=== PATIENT | male | born 1945 | race Caucasian/White ===

== ENCOUNTER 2018-05-05 07:53 | Inpatient (IN) | payer MEDICARE ==
[2018-05-05] MEDS ORDERED: Celecoxib 200 MG Cap PO ONE (08:00)
[2018-05-05] MEDS ORDERED: Gabapentin 300 MG Cap PO ONE (08:00)
[2018-05-05] MEDS ORDERED: Acetaminophen 500 MG Tab PO ONE (08:00)
[2018-05-05] MEDS ORDERED: Scopolamine 1.5 MG Transdermal Patch TOP SCH (08:00)
[2018-05-05] MEDS ORDERED: fentaNYL 250 MCG/5 ML SDV ONE ×2 (08:17→12:28)
[2018-05-05] MEDS ORDERED: Ondansetron 4 MG/2 ML SDV ONE (08:18)
[2018-05-05] MEDS ORDERED: Succinylcholine 200 MG/10 ML MDV ONE (08:18)
[2018-05-05] MEDS ORDERED: Dexamethasone 4 MG/ML SDV ONE (08:18)
[2018-05-05] MEDS ORDERED: Rocuronium 50 MG/5 ML Vial ONE (08:18)
[2018-05-05] MEDS ORDERED: Glycopyrrolate 0.2 MG/ML 5 ML MDV ONE (08:18)
[2018-05-05] MEDS ORDERED: Propofol 200 MG/20 ML SDV ONE (08:18)
[2018-05-05] MEDS ORDERED: Neostigmine Methylsulfate 1 MG/ML 5 ML Syringe ONE (08:18)
[2018-05-05] MEDS ORDERED: Dextrose 5%-Lactated Ringers 1,000 ML IV SCH (09:00)
[2018-05-05] MEDS ORDERED: Albuterol/Ipratropium 3.0-0.5 MG/3 ML Neb Soln NEB ONE (09:30)
[2018-05-05] MEDS ORDERED: Ropivacaine 56 ML, Dexamethasone 8 MG, EPINEPHrine 0.4 MG, Sodium Chloride 0.9% 21.6 ML NERVRT SCH ×4 (10:00)
[2018-05-05] MEDS ORDERED: Lidocaine 2% 100 MG/5 ML Syringe IVPUSH ONE (10:00)
[2018-05-05] MEDS ORDERED: cefOXitin 2 GM in Sodium Chloride 0.9% 50 ML IV ONE (10:00)
[2018-05-05] MEDS ORDERED: Ketamine 500 MG/5 ML MDV IV SCH (10:00)
[2018-05-05] MEDS ORDERED: Lactated Ringers 1,000 ML ONE (10:16)
[2018-05-05] MEDS ORDERED: cefOXitin 2 GM Vial ONE (12:41)
[2018-05-05] MEDS ORDERED: hydrOXYzine HCl 100 MG/2 ML SDV IM ONE (13:59)
[2018-05-05] MEDS: Lidocaine 0.4%/D5W 2 GM/500 ML BAG IV SCH (14:54)
[2018-05-05] MEDS ORDERED: Albuterol/Ipratropium 3.0-0.5 MG/3 ML Neb Soln INH PRN (15:12)
[2018-05-05] MEDS: Pantoprazole 40 MG Vial IVPUSH SCH (15:58)
[2018-05-05] MEDS ORDERED: Labetalol 20 MG/4 ML Syringe IVPUSH PRN (16:00)
[2018-05-05] MEDS ORDERED: hydrOXYzine HCl 100 MG/2 ML SDV IM PRN (16:00)
[2018-05-05] MEDS ORDERED: Ondansetron 4 MG/2 ML SDV IVPUSH PRN (16:00)
[2018-05-05] MEDS ORDERED: diphenhydrAMINE 50 MG/ML SDV IVPUSH PRN (16:00)
[2018-05-05] MEDS ORDERED: Metoclopramide 10 MG/2 ML SDV IVPUSH PRN (16:00)
[2018-05-05] MEDS: Acetaminophen Soln 650 MG/20.3 ML UD Cup PO SCH ×2 (16:03→22:46)
[2018-05-05] MEDS: cefOXitin 2 GM in Sodium Chloride 0.9% 50 ML IV SCH ×2 (16:39→23:17)
[2018-05-05] MEDS: MVI, Adult with Vitamin K 10 ML, Thiamine 200 MG, Chromium/Copper/Mang/Selen/Zn 1 ML in... IV SCH ×4 (16:44)
[2018-05-05] MEDS: Formoterol/Mometasone 200-5 MCG 8.8 GM Inhaler IH SCH (22:41)
[2018-05-05] MEDS: Heparin Sodium 5,000 Units/ML Vial SUBCUT SCH (22:46)
[2018-05-05] MEDS: Montelukast 5 MG Tab.Chew PO SCH (22:46)
[2018-05-05] MEDS: Gabapentin 250 MG/5 ML Solution ML 470 ML Bottle PO SCH (22:46)
[2018-05-05] MEDS: Albuterol/Ipratropium 3.0-0.5 MG/3 ML Neb Soln INH SCH (22:46)
[2018-05-05] MEDS: Dextrose 5%-Lactated Ringers 1,000 ML IV SCH (23:18)
[2018-05-06] MEDS ORDERED: Iohexol 647 MG/ML 50 ML SDV PO STA (03:00)
[2018-05-06] MEDS: Heparin Sodium 5,000 Units/ML Vial SUBCUT SCH ×3 (04:30→21:35)
[2018-05-06] MEDS: Albuterol/Ipratropium 3.0-0.5 MG/3 ML Neb Soln INH SCH ×5 (04:49→21:36)
[2018-05-06] MEDS: cefOXitin 2 GM in Sodium Chloride 0.9% 50 ML IV SCH ×2 (04:50→10:50)
[2018-05-06] MEDS: Acetaminophen Soln 650 MG/20.3 ML UD Cup PO SCH ×4 (04:50→21:37)
[2018-05-06] MEDS: Lidocaine 0.4%/D5W 2 GM/500 ML BAG IV SCH (05:05)
[2018-05-06] MEDS: Dextrose 5%-Lactated Ringers 1,000 ML IV SCH ×2 (06:07→21:04)
[2018-05-06] MEDS: Formoterol/Mometasone 200-5 MCG 8.8 GM Inhaler IH SCH (07:29)
[2018-05-06] MEDS: SCOPOLAMINE PATCH CHECK TOP SCH (08:11)
[2018-05-06] MEDS: Gabapentin 250 MG/5 ML Solution ML 470 ML Bottle PO SCH ×3 (08:15→21:37)
[2018-05-06] MEDS: Celecoxib 200 MG Cap PO SCH (08:15)
--- NOTE | 2018-05-06 09:05 | CR ---
Limited upper GI The patient is status post Mark-en-Y gastric bypass. There are left upper quadrant drains in place. T here is no extravasation of contrast. The gastric pouch empties readily into a nondilated Mark limb. No complications are evident. Impression: 1. Status post Mark-en-Y gastric bypass without evidence for complication.
[2018-05-06] MEDS: ADVAIR 250/50 INHALER (PTOM) INH SCH ×2 (10:15→21:36)
[2018-05-06] MEDS: amLODIPine 5 MG Tab PO SCH (10:49)
[2018-05-06] MEDS: Losartan 50 MG Tab PO SCH (10:49)
[2018-05-06] MEDS: Aspirin 81 MG Tab.EC PO SCH (10:49)
[2018-05-06] MEDS: Tamsulosin 0.4 MG Cap.ER PO SCH ×2 (10:49→21:37)
[2018-05-06] MEDS: MVI, Adult with Vitamin K 10 ML, Thiamine 200 MG, Chromium/Copper/Mang/Selen/Zn 1 ML in... IV SCH ×4 (15:18)
[2018-05-06] MEDS: Pantoprazole 40 MG Vial IVPUSH SCH (15:19)
[2018-05-06] MEDS: Montelukast 5 MG Tab.Chew PO SCH (21:37)
[2018-05-07] MEDS: Heparin Sodium 5,000 Units/ML Vial SUBCUT SCH (03:23)
[2018-05-07] MEDS: Acetaminophen Soln 650 MG/20.3 ML UD Cup PO SCH ×2 (03:23→09:10)
[2018-05-07] MEDS: Dextrose 5%-Lactated Ringers 1,000 ML IV SCH (05:56)
[2018-05-07] MEDS: Celecoxib 200 MG Cap PO SCH (07:30)
[2018-05-07] MEDS: Albuterol/Ipratropium 3.0-0.5 MG/3 ML Neb Soln INH SCH (07:37)
[2018-05-07] MEDS: ADVAIR 250/50 INHALER (PTOM) INH SCH (07:40)
[2018-05-07] MEDS ORDERED: Ondansetron 4 MG Tab.DIS PO PRN (08:01)
[2018-05-07] MEDS ORDERED: Cyanocobalamin (Vitamin B12) 1,000 MCG/ML SDV IM ONE (09:00)
[2018-05-07] MEDS: amLODIPine 5 MG Tab PO SCH (09:08)
[2018-05-07] MEDS: Losartan 50 MG Tab PO SCH (09:09)
[2018-05-07] MEDS: SCOPOLAMINE PATCH CHECK TOP SCH (09:09)
[2018-05-07] MEDS: Aspirin 81 MG Tab.EC PO SCH (09:09)
[2018-05-07] MEDS: Gabapentin 250 MG/5 ML Solution ML 470 ML Bottle PO SCH (09:26)
--- NOTE | 2018-05-07 12:25 | DISCH ---
ADMISSION DIAGNOSES: 1. Morbid obesity, BMI 42.7. 2. Asthma. 3. Esophageal reflux. 4. Benign essential hypertension. 5. Obstructive sleep apnea with use of CPAP. 6. Allergic rhinitis. DISCHARGE DIAGNOSES: Laparoscopic Mark-en-Y gastric bypass surgery, liver biopsy, repair of diaphragmatic hernia, excision of mediastinal lipoma, and excision of lesion on surface of sigmoid colon for morbid obesity, hepatomegaly, diaphragmatic hernia with mediastinal lipoma and nodule infarcted small tissue mass on the surface of the sigmoid colon. Date of surgery, 05/05/2018. Surgeon, Tip Hooper MD. HISTORY: Raymond Dos Santos is a 72-year-old male with a longstanding history of morbid obesity and increasing comorbidities. After preoperative evaluation and discussion of possible risks and possible complications, he wished to proceed with surgical procedure. HOSPITAL COURSE: Raymond had his surgery on 05/05/2018. He had no operative complications. On postoperative day #1, he was started on step-2 . He was able to be discharged to home on postoperative day #2, 05/07/2018. PHYSICAL EXAMINATION: GENERAL: Raymond Dos Santos is a 72-year-old male. VITAL SIGNS: Height is 5 feet 4 inches. Weight is 240 pounds. TPR 95.8, 49, 16, and blood pressure 135/64. HEENT: Negative. NECK: Supple. HEART: Regular rate and rhythm. LUNGS: Clear. ABDOMEN: Incisions look good. 4x4 over RON drain. Abdominal binder has been on. EXTREMITIES: Without peripheral edema. DISPOSITION: Discharged home. CONDITION: Stable and improving. FOLLOWUP APPOINTMENT: Faye Mercedes PA-C, on 05/14/2018 at 10 a.m. DISCHARGE MEDICATIONS: New prescriptions; 1. Tylenol 650 mg oral, liquid or chewable, q.6 hours p.r.n. pain. 2. Zofran 4 mg oral q.4 hours p.r.n. nausea, #30. 3. Celebrex 200 mg 1 p.o. daily, #14, to start tomorrow. He is to resume his home medications of; 1. Albuterol inhaler 4 times daily p.r.n. shortness of breath. 2. Ecotrin 81 mg oral daily. 3. Advair 250/50 one puff inhalation twice daily. 4. Imodium 6 mg oral daily p.r.n. 5. Cozaar 100 mg oral daily. 6. Lovastatin 20 mg oral at bedtime. 7. Singulair 10 mg oral at bedtime. 8. Protonix 40 mg oral daily. 9. Sildenafil citrate 100 mg oral daily p.r.n. erectile dysfunction. 10.Zinc 15 mg oral daily. 11.Amlodipine 5 mg oral daily. Discontinue taking glucosamine until next appointment. DISCHARGE DIET: Drink 8 to 10 glasses of water a day. Step-2 gastric bypass diet with no cereal until 05/19/2018. ACTIVITY: No lifting greater than 10 pounds for 2 weeks. Walk 6 times daily, distance and time as tolerated. Driving, do not drive for one week. Shower/bathing, may shower. DISCHARGE INSTRUCTIONS: Notify provider if any fever, increased pain, swelling, redness, nausea, or vomiting. Wound keep site clean and dry. Wear abdominal binder for 2 weeks and then as tolerated. Special instruction, use incentive spirometer 10 times every hour while awake.
--- NOTE | 2018-05-08 07:59 | PN ---
DATE OF SERVICE: 05/06/2018 The patient has been afebrile with stable vital signs, after gastric bypass yesterday, along with repair of a large hiatal hernia. Clinically, he is doing well. Urine output has been little bit sluggish, and we will give him some Flomax, although he is voiding a substantial amount at a time. We will check a postvoid residual. Otherwise, upper GI x-ray looks okay. Will go to a step-2 diet today and restart his pertinent oral medications. Otherwise, maximize activity and work with pulmonary toilet. Tip Hooper MD /[id number]
--- NOTE | 2018-05-09 08:09 | OR ---
DATE OF PROCEDURE: 05/05/2018 PREOPERATIVE DIAGNOSIS: Morbid obesity. POSTOPERATIVE DIAGNOSES: 1. Morbid obesity. 2. Marked hepatomegaly. 3. Paraesophageal diaphragmatic hernia associated with mediastinal lipoma. 4. 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 OPERATIVE PROCEDURES: Diagnostic laparoscopy with 1. Laparoscopic Mark-en-Y gastric bypass with long-limb gastroenterostomy (11425). 2. Farrukh-Cut needle liver biopsy (16873). 3. Repair of paraesophageal diaphragmatic hernia (02685). 4. Excision of mediastinal lipoma (72126). 5. Excision of nodular infarcted soft tissue mass on the surface of sigmoid colon (36754). ANESTHESIA: General. MACHINE BOBBIN WINDER: Faye Mercedes PA-C. INDICATIONS FOR PROCEDURE: This 72-year-old male is presenting with longstanding morbid obesity and increasingly significant comorbidities. After preoperative evaluation and discussion, he wished to proceed with a gastric bypass procedure. Potential risks of the procedure including bleeding, infection, leaks from various GI tract closures, problems with bowel obstruction over time, as well as the possibility of cardiopulmonary, septic, or hemorrhagic complications leading to were all discussed, and the patient wishes to proceed. DETAILS OF PROCEDURE: The patient was taken to the operating room and placed in a supine position. After general endotracheal anesthesia was induced, he was converted to a lithotomy position. An orogastric tube was placed, and the abdomen was prepped and draped. 15 cm inferior and 5 cm left of the xiphoid process, a transverse incision was made, and the peritoneal cavity was entered under direct vision with an Optiview trocar and inflated to 15 mmHg pressure with CO2. Laparoscope was reinserted. No underlying trocar insertion site injuries were seen. Bilateral subcostal transversus abdominis plane bocks were then placed with direct visualization of the needle in the correct plane and injection of the standard solution bilateral. Five additional trocars were placed across the upper and mid abdomen, and general exploration was undertaken. Two findings were noted. One was that of an infarcted nodular lesion over the peritoneal surface of the sigmoid colon. This measured 3 cm to 4 cm and was excised with a Harmonic scalpel and delivered from the field. The patient was also then noted to have a moderate hepatomegaly, with the liver being grossly somewhat fatty infiltrated. Farrukh-Cut needle biopsies were obtained from the left lobe of the liver. Minimal bleeding from the biopsy sites was controlled with electrocautery. The omentum was then divided in the midline up to the level of the transverse colon. This allowed identification of the small bowel to the ligament of Treitz. Small bowel was then traced out 200 cm distal to that point, where it was divided transversely with a CHERYL stapler. The small bowel was then traced out additional 200 cm, where the [id number] enteroenterostomy was accomplished with internal firing of the Endo-CHERYL 60-mm stapler. The common opening was then closed transversely with the same stapler, angles anastomosed, and mesenteric defect was approximated with some 0 Ethibond stitch along with fibrin sealant. The divided end of the Mark limb was then from the mesentery for a few centimeters, which allowed an antecolic position of the Mark limb at the level of the gastroesophageal junction without tension. The liver was then retracted anteriorly. The patient was noted to have a fairly large paraesophageal diaphragmatic hernia. This contained some omentum prolapsing into the plane anterior to the course of the esophagus and stomach. As this was reduced, the peritoneum over the hernia was incised and reflected downward. A mediastinal lipoma was encountered, which was then excised with a Harmonic scalpel and delivered from the field. The diaphragmatic hernia was then repaired with some 0 Ethibond sutures reinforced with PTFE pledgets. The gastrointestinal balloon catheter was then inflated to 15 mL and pulled up snugly against the EG junction. Gastric wall of the [place] balloon was then marked with electrocautery, balloon catheter deflated, and pulled up from the esophagus. The lesser omental tissue adjacent to the gastric cardia was then incised, allowing dissection of the stomach adjacent to the gastric cardia. Pouch formation was initiated with a transverse firing of the CHERYL stapler at the level of the cauterized fabienne in the gastric cardia. The pouch was then completed with additional firings of the CHERYL mitali up to and through the angle of His. Upon completion of the pouch, both staple lines were noted to be intact. The anvil of a 25-mm EEA stapler was attached to [place] sump type tube, and the latter was brought down through the mouth and taken out through a small opening in the gastric pouch while it submerged within the cefoxitin-containing saline solution. One Ifeanyi-Henson drain was then placed and taken out through the left lateral trocar site and positioned adjacent to the gastrojejunostomy and from there into the splenic fossa. The trocars were then sequentially removed, and the peritoneal cavity deflated. The incisions were closed with some 4-0 Vicryl skin stitch, which was also used to fix the drain. The patient was taken to the recovery room in a satisfactory condition. There were no evident complications. Physician food and nutrition services assistant, Faye Mercedes, played an essential role in assisting in this case, helping to position the patient, retract structures as needed, as well as suturing and cutting sutures when indicated. Her presence improved patient safety and decreased the operative time. Tip Hooper MD /[id number]
== END 2018-05-07 10:20 | disposition home or self-care (01) | DRG 621 ==
LOC: JP.SDS 07:53 → JP.SDSSCHI 07:53 → EDSTATUS 12:00 → JP.MS 14:58
PROVIDERS: ADMIT Surgery; ATTEND Surgery
PROC: 0BQT4ZZ Repair Diaphragm, Percutaneous Endoscopic Approach (ICD-10-PCS; principal; 2018-05-05)
PROC: 0FB24ZX Excision of Left Lobe Liver, Percutaneous Endoscopic Approach, Diagnostic (ICD-10-PCS; principal; 2018-05-05)
PROC: 0DBN4ZZ Excision of Sigmoid Colon, Percutaneous Endoscopic Approach (ICD-10-PCS; principal; 2018-05-05)
PROC: 0D164ZA Bypass Stomach to Jejunum, Percutaneous Endoscopic Approach (ICD-10-PCS; principal; 2018-05-05)
PROC: 0JB63ZZ Excision of Chest Subcutaneous Tissue and Fascia, Percutaneous Approach (ICD-10-PCS; 2018-05-05)
DX: E66.01 Morbid (severe) obesity due to excess calories (principal); Z68.41 Body mass index [BMI] 40.0-44.9, adult; K44.9 Diaphragmatic hernia without obstruction or gangrene; D17.4 Benign lipomatous neoplasm of intrathoracic organs; I10 Essential (primary) hypertension; K21.9 Gastro-esophageal reflux disease without esophagitis; J45.40 Moderate persistent asthma, uncomplicated; G47.33 Obstructive sleep apnea (adult) (pediatric); Z91.040 Latex allergy status; Z91.018 Allergy to other foods; Z88.0 Allergy status to penicillin; Z88.8 Allergy status to other drugs, medicaments and biological substances
CPT/HCPCS: 36415; 74240; 74240-26; 82962; 86850; 86900; 86901; 94640; 94640-76; A9270-GY; C9113; J0171; J0330; J0694; J1100; J1644; J2001; J2405; J2704; J2710; J2795; J3010; J3410; J3411; J3420; J3490; J7030; J7042; J7050; J7120; J7620-GY; Q9967